=== PATIENT | male | born 1975 | race Caucasian/White ===

== ENCOUNTER 2016-11-02 11:05 | Emergency (ER) | payer MEDICAID ==
[~2016-11-02] VITALS: Ht 175.3 cm; Wt 90.0 kg
[2016-11-02 11:57] LABS: BLOOD UREA NITROGEN 13 mg/dL (7-18)
[2016-11-02 11:59] LABS: ACETAMINOPHEN < 2 mcg/mL (10-30)
[2016-11-02 12:37] LABS: DAU SCREEN DISCLAIMER
[2016-11-02 15:53] VITALS: BP 132/72
== END 2016-11-02 15:56 | disposition home or self-care (01) ==
LOC: ED 12:46
DX: F41.1 Generalized anxiety disorder (principal); F32.9 Major depressive disorder, single episode, unspecified; F15.10 Other stimulant abuse, uncomplicated
CPT/HCPCS: 36415; 80048; 80307; 80329; 82040; 85025; 99284; G0480

== ENCOUNTER 2017-06-09 22:29 | Emergency (ER) | payer MEDICAID ==
[~2017-06-09] VITALS: Ht 175.3 cm; Wt 103.5 kg
[2017-06-09 22:33] VITALS: BP 140/88
== END 2017-06-10 01:17 | disposition left against medical advice (07) ==
LOC: ED 06-10 01:11
DX: R51 Headache (principal); Z53.21 Procedure and treatment not carried out due to patient leaving prior to being seen by health care provider